=== PATIENT | male | born 1970 | race Caucasian/White ===

== ENCOUNTER 2018-09-28 05:12 | Day surgery (SDC) | payer OTHER | END 2018-09-28 16:35 | disposition home or self-care (01) | LOC: D.OPS 05:12 | DX: K80.10 Calculus of gallbladder with chronic cholecystitis without obstruction (principal); K76.0 Fatty (change of) liver, not elsewhere classified; B19.10 Unspecified viral hepatitis B without hepatic coma; K82.8 Other specified diseases of gallbladder; Z01.812 Encounter for preprocedural laboratory examination ==